=== PATIENT | male | born 1965 | race Caucasian/White ===

== ENCOUNTER 2023-04-13 07:28 | Inpatient (IN) | payer OTHER ==
[~2023-04-13] VITALS: Ht 160 cm; Wt 68.0 kg
--- NOTE | 2023-04-13 07:55 | NUR ---
PTE REFIERE TOS Y [facility] GENER[facility] DESDE EL VIERNES.
--- NOTE | 2023-04-13 09:05 | NUR ---
SE RECIBE PTE MASCULINO DE 57 YRS ALERTA,CONCIETE Y TRANQUILO ,ES EVALUADO POR EL LIBORIO BLANC QUIEN ORDENA TRATAMIENTO LA CUAL SE EJECUTA. SE MANTIENE BAJO OBSERVACION.
--- NOTE | 2023-04-13 12:13 | NUR ---
SE LE COMIENZA EN ANTIBIOTICO A PTE Y SE COLOCA EN ASMA UNID, SE LE NOTIFICA A SATURNINO DE TERAPIA RESPIRATORIA PARA LOS ABG'S.
== END 2023-04-16 15:31 | disposition home or self-care (01) | DRG 195 ==
LOC: ER 07:28 → SEC-K 18:05 → MEDI 18:05
PROVIDERS: General Practice; ADMIT Internal Medicine; ATTEND Internal Medicine
PROC: BW24ZZZ Computerized Tomography (CT Scan) of Chest and Abdomen (ICD-10-PCS; principal; 2023-04-13)
DX: J18.9 Pneumonia, unspecified organism (principal); E11.9 Type 2 diabetes mellitus without complications; Z79.4 Long term (current) use of insulin; I10 Essential (primary) hypertension; Z87.891 Personal history of nicotine dependence

== ENCOUNTER 2023-09-14 16:03 | Emergency (ER) | payer OTHER ==
[~2023-09-14] VITALS: Ht 160 cm; Wt 68.0 kg
[2023-09-14] MEDS ORDERED: LOSARTAN POTASS25 MG (16:48)
[2023-09-14] MEDS ORDERED: METFORMIN HCL500 M3 (16:48)
== END 2023-09-14 20:18 | disposition home or self-care (01) ==
LOC: ER 16:05
DX: M79.675 Pain in left toe(s) (principal)

== ENCOUNTER 2024-08-17 08:34 | Emergency (ER) | payer OTHER ==
[~2024-08-17] VITALS: Ht 160 cm; Wt 72.6 kg
[~2024-08-17 08:34] MED LIST: ACETAMINOPHEN500 M2 PO; CYCLOBENZAPRINE10 MG PO; LOSARTAN POTASS25 MG; METFORMIN HCL500 M3
[2024-08-17 08:56] VITALS: BP 160/80; O2SAT 98
[2024-08-17] MEDS ORDERED: KETOROLAC TROMETHAMINE 60 MG VIAL IM ONE ×2 (09:08→09:15)
[2024-08-17] MEDS ORDERED: GUAIFENESIN/DEXTROMETHORPHAN 10ML BLIST.PACK PO ONE ×2 (09:08→09:15)
[2024-08-17 10:24] LABS: HEMATOCRIT 41.1 % (39.0-48.0); HEMOGLOBIN 14.1 g/dL (13-16.00); MEAN CELL VOLUME 87.6 fL (80.0-100.00); MEAN CORPUSCULAR HEMOGLOBIN 30.1 pg (27.00-32.0); MEAN CORPUSCULAR HGB CONC 34.3 g/dl (32.0-36.0); PLATELET COUNT 220 K/uL (150-450); RED BLOOD COUNT 4.69 M/uL (4.00-6.00)
[2024-08-17] MEDS ORDERED: ZITHROMAX500 MG PO (11:45)
[2024-08-17] MEDS ORDERED: TUSNEL LIQUID178 ML PO (11:45)
== END 2024-08-17 11:56 | disposition home or self-care (01) ==
LOC: ER 08:36
PROVIDERS: General Practice
DX: B34.9 Viral infection, unspecified (principal); R53.81 Other malaise; Z20.822 Contact with and (suspected) exposure to COVID-19; I10 Essential (primary) hypertension; E11.9 Type 2 diabetes mellitus without complications; Z79.84 Long term (current) use of oral hypoglycemic drugs

== ENCOUNTER 2025-05-31 09:05 | Emergency (ER) | payer OTHER ==
[~2025-05-31] VITALS: Ht 160 cm; Wt 72.6 kg
[~2025-05-31 09:05] MED LIST changes: +TUSNEL LIQUID178 ML PO; +ZITHROMAX500 MG PO
[2025-05-31] MEDS ORDERED: LIPITOR20 MG PO (09:23)
[2025-05-31] MEDS ORDERED: ECOTRIN81 MG PO (09:24)
[2025-05-31] MEDS ORDERED: ALBUTEROL SULFATE 3 ML/2.5 MG AMPUL.NEB IH SCH (09:45)
[2025-05-31] MEDS ORDERED: ALBUTEROL SULFATE 3 ML/2.5 MG AMPUL.NEB IH ONE (10:48)
[2025-05-31 12:43] LABS: COVID-19 AG NEGATIVE (NEGATIVE)
== END 2025-05-31 22:07 | disposition home or self-care (01) ==
LOC: ER 09:06
PROVIDERS: Emergency Medicine
DX: J20.9 Acute bronchitis, unspecified (principal); Z20.822 Contact with and (suspected) exposure to COVID-19; I10 Essential (primary) hypertension; E11.9 Type 2 diabetes mellitus without complications; Z79.84 Long term (current) use of oral hypoglycemic drugs